=== PATIENT | female | born 1990 | race Two or more races ===

== ENCOUNTER 2023-08-20 09:09 | Emergency (ER) | payer OTHER ==
[2023-08-20 09:46] VITALS: RESP 20; BMI 34.7
[2023-08-20] MEDS ORDERED: DEXAMETHASONE SOD PHOSPHATE 10 MG/1 ML VIAL ONE (10:12)
[2023-08-20] MEDS: DEXAMETHASONE SOD PHOSPHATE 10 MG/1 ML VIAL IM ONE (10:16)
[2023-08-20 11:40] VITALS: BP 122/78; PULSE 114; TEMP 100.8
== END 2023-08-20 11:41 | disposition home or self-care (01) ==
LOC: JER 09:09
PROC: 3E023GC Introduction of Other Therapeutic Substance into Muscle, Percutaneous Approach (ICD-10-PCS; principal; 2023-08-20)
DX: R07.9 Chest pain, unspecified (principal); R06.02 Shortness of breath; J02.9 Acute pharyngitis, unspecified; J10.1 Influenza due to other identified influenza virus with other respiratory manifestations; Z20.822 Contact with and (suspected) exposure to COVID-19
CPT/HCPCS: 0241U-QW; 87070; 93005; 93010; 99284-25; J1100